=== PATIENT | male | born 1990 | race Caucasian/White ===

== ENCOUNTER 2017-06-20 09:54 | Emergency (ER) | payer OTHER ==
--- NOTE | 2017-06-20 10:18 | ER Document Report ---
ED Foreign Body - General Chief Complaint: Foreign Body Stated Complaint: FOREIGN OBJECT IN FOOT Time Seen by Provider: 06/20/17 10:06 Notes: Patient is a 27-year-old male who presents emergency department complaining of foreign body on the top of his right foot. Patient states that he was mowing his lawn this morning when he felt something hit the top of his right foot. Patient states that he looked down and fell wires sticking through issue. Patient states that he cut the wire and was able take off his shoe and sock. Patient's was able to drive to the department. Patient admits to mild pain but otherwise denies any pain with ambulation or to touch. Patient able to ambulate without any difficulty. No bleeding. Tetanus is not up-to-date. Patient admits to history of anxiety, depression, migraines. Follows with the [facility] for primary care TRAVEL OUTSIDE OF THE [place] IN LAST 30 DAYS: No - Related Data Allergies/Adverse Reactions: No Known Allergies Allergy (Unverified 06/20/17 09:59) Past Medical History - Social History Smoking Status: Never Smoker Family History: Reviewed & Not Pertinent Renal/ Medical History: Denies: Hx Peritoneal Dialysis Review of Systems - Review of Systems Constitutional: No symptoms reported Musculoskeletal: No symptoms reported Skin: See HPI -: Yes All other systems reviewed and negative Physical Exam - Vital signs Vitals: Temp Pulse Resp BP Pulse Ox 98.5 F 71 18 137/84 H 97 06/20/17 09:59 06/20/17 09:59 06/20/17 09:59 06/20/17 09:59 06/20/17 09:59 - General General appearance: Appears well, Alert In distress: None - Cardiovascular Pulses: Normal: Dorsalis pedis Normal capillary refill: Yes - Extremities Foot: Nontender, Puncture wound, Other - Full range of motion and strength 5 out of 5 of the affected foot. No: Abrasion, Deformity, Ecchymosis, Edema, Instability, Laceration, Metatarsal compress. pain, Nail injury, Navicular tenderness, No evidence of FB - A thin wire perpendicular to the skin overlying the distal end of the 2nd metatarsal., Tender 5th metatarsal, Unable to bear weight - Neurological Motor strength normal: LLE, RLE Additional motor exam normals: No: Weakness Sensory: Normal - Skin Skin irregularity: other - Foreign body on the dorsal surface of the right foot over the distal end of the 2nd metatarsal but no active bleeding. negative: Erythema, Tender indurated area Course - Re-evaluation Re-evalutation: 06/20/17 11:41 Patient is a 19-year-old male who is seen and at the stable, no acute distress afebrile. Presents with a metal foreign body on the dorsal surface of the right foot. Foreign body visualized on x-ray. And exercise with 1% lidocaine and removed at the bedside. Patient tolerated procedure well. Patient's foot irrigated with Betadine and repeat imaging ordered. 06/20/17 12:09 No evidence of retained foreign body noted on x-ray. Bleeding controlled. Tetanus status has been updated patient stable for discharge home. - Vital Signs Vital signs: Temp Pulse Resp BP Pulse Ox 98.5 F 71 18 137/84 H 97 06/20/17 09:59 06/20/17 09:59 06/20/17 09:59 06/20/17 09:59 06/20/17 09:59 - Diagnostic Test Radiology reviewed: Image reviewed, Reports reviewed Discharge - Discharge Clinical Impression: Foreign body Condition: Good Disposition: HOME, SELF-CARE Instructions: Removal of Subcutaneous Foreign Object ([facility]) Additional Instructions: Please return to the emergency department or see her primary care provider with any signs of redness, swelling, conte drainage, fever, chills, any red streaking up your limb. Prescriptions: Cephalexin Monohydrate [Keflex 500 mg Capsule] 500 mg PO Q6H 5 Days capsule
[2017-06-20] MEDS ORDERED: DIPH/PERTUSS(ACELL)/TETANUS VAC/PF 0.5 ML SYR (>=10YO) IM ONE (10:19)
[2017-06-20] MEDS ORDERED: ACETAMINOPHEN 325 MG TABLET PO ONE (10:19)
--- NOTE | 2017-06-20 11:18 | RADIOLOGY REPORT (SQ) ---
EXAM DESCRIPTION: FOOT RIGHT COMPLETE COMPLETED DATE/TIME: 06/20/2017 10:45 am REASON FOR STUDY: FB in foot, pain COMPARISON: None. NUMBER OF VIEWS: Three views. TECHNIQUE: AP, lateral and oblique radiographic images acquired of the right foot. LIMITATIONS: None. FINDINGS: MINERALIZATION: Normal. BONES: No acute fracture or dislocation. No worrisome bone lesions. JOINTS: No effusions. SOFT TISSUES: Curvilinear metallic foreign body overlying soft tissues dorsal to head of the 1st and 2nd metatarsals. OTHER: No other significant finding. IMPRESSION: Metal foreign body. TECHNICAL DOCUMENTATION: JOB ID: [id number] [employer]- All Rights Reserved
--- NOTE | 2017-06-20 12:02 | RADIOLOGY REPORT (SQ) ---
EXAM DESCRIPTION: FOOT RIGHT COMPLETE COMPLETED DATE/TIME: 06/20/2017 11:42 am REASON FOR STUDY: s/p FB removal COMPARISON: 06/20/2017, 1044 hours NUMBER OF VIEWS: Three views. TECHNIQUE: AP, lateral and oblique radiographic images acquired of the right foot. LIMITATIONS: None. FINDINGS: MINERALIZATION: Normal. BONES: No acute fracture or dislocation. No worrisome bone lesions. JOINTS: No effusions. SOFT TISSUES: Radiopaque foreign body seen along the dorsal right foot at the level of the 1st and 2n d metatarsal heads has been completely removed. Trace amount of soft tissue gas at the site of prior foreign body. OTHER: No other significant finding. IMPRESSION: Post removal right dorsal forefoot radiopaque foreign body. No retained metal fragments . No underlying bony abnormality. TECHNICAL DOCUMENTATION: JOB ID: [id number] [employer]- All Rights Reserved
[2017-06-20 12:17] VITALS: BP 132/79
== END 2017-06-20 12:18 | disposition home or self-care (01) ==
LOC: EDBD 09:54 → ER 09:54
DX: S91.341A Puncture wound with foreign body, right foot, initial encounter (principal); W22.8XXA Striking against or struck by other objects, initial encounter; Y93.H9 Activity, other involving exterior property and land maintenance, building and construction; Z23 Encounter for immunization
CPT/HCPCS: 90471; 90715; 99283